=== PATIENT | male | born 1980 | race Caucasian/White ===

== ENCOUNTER 2019-04-19 12:43 | Emergency (ER) | payer SELFPAY ==
[2019-04-19 12:44] VITALS: BP 152/86; PULSE 93; RESP 16; TEMP 36.5; O2SAT 96; BMI 33.7
--- NOTE | 2019-04-19 12:55 | RAD_ITS ---
STUDY: X-RAY - LEFT ELBOW REASON FOR EXAM: Male, 38 years old. Injury TECHNIQUE: 3 view(s) of the elbow. COMPARISON: None. FINDINGS: Intact visualized humerus, radius and ulna. Normal radiocapitellar and ulnotrochlear articulations. The soft tissue structures are unremarkable. No evidence of elbow joint effusion. There is triceps enthesopathy, along with chronic lateral epicondylitis RAD/Elbow min 3 Views IMPRESSION: No acute displaced fracture, or traumatic subluxation based on current assessment. There is triceps enthesopathy, along with chronic lateral epicondylitis Electronically Signed: Donis Nieto MD at 13:23 EDT Tel [phone], Service support ,
--- NOTE | 2019-04-19 12:55 | RAD_ITS ---
STUDY: X-RAY - LEFT RADIUS AND ULNA REASON FOR EXAM: Male, 38 years old. Injury TECHNIQUE: 2 view(s) of the forearm. COMPARISON: None. FINDINGS: There is no demonstrated soft tissue swelling or radiopaque foreign body. Intact visualized radius. Intact visualized ulna. Enthesopathy along the triceps insertion. There is no demonstrated acute fracture. No evidence of joint effusion in the elbow joint. RAD/Forearm 2 Views IMPRESSION: No acute displaced fracture, or traumatic subluxation based on current assessment. There is triceps enthesopathy. Electronically Signed: Donis Nieto MD at 13:19 EDT Tel [phone], Service support ,
--- NOTE | 2019-04-19 13:49 | ED.VISSUMM ---
- ER Visit Summary Date of Service: 04/19/19 Chief Complaint: Left elbow injury History of Present Illness: The patient is a 38 M who presents with a left elbow injury that occurred today after a fall. Patient states he slid down an embankment approximately 5 feet. Patient states he put his left arm out to catch him and he felt a snapping sensation in his elbow. Patient denies any other injuries. Patient denies any head injury or loss of consciousness. Patient states he did have some tingling in his fingers that resolved after a few seconds. Patient describes his pain as aching, burning, and throbbing. Patient states the pain is worse with movement. Physical Examination: Vital signs are stable. Patient is afebrile. Patient is in no acute distress. Musculoskeletal exam reveals tenderness over the left elbow. There is no bony crepitance or step-off. Range of motion was limited in all motions of the elbow secondary to pain. There is no deformity noted. Radial pulses are equal bilaterally. Sensation was intact to light touch in the radial, median, and ulnar areas. Capillary refill is less than 2 seconds in all digits. Strength is 5/5 in the radial, median, and ulnar areas. Test Results: X-rays of the left elbow and left forearm were obtained. There is no acute fracture. These were interpreted by the radiologist and myself. Emergency Department Course and Treatment: Patient was instructed to ice and elevate the left elbow. Patient was given work restrictions. Patient was instructed to take Tylenol or ibuprofen as needed for pain. Patient was instructed to follow-up with his primary care physician in 5 to 7 days. Patient understood and was agreeable with the plan. All questions were answered. Disposition: Discharge home Impression: Left elbow contusion This note was generated with [employer] dictation software. It may contain incorrect words, spelling, and punctuation that were not noted in review of the chart prior to signing ED Disposition - Plan for ED Patient: Disposition: Home or Assisted Living Diagnosis: Left elbow contusion Instructions: CONTUSION, Elbow Referrals: Care Physician,No Primary [Primary Care Provider] - Ke Mason MD [NON-STAFF] - 5-7 Days [facility] [GROUP OF PHYSICIANS] - 5-7 Days
--- NOTE | 2019-04-19 14:03 | ED.RN ---
PT ADAMANTLY DECLINES FILING INJURY WORKERS COMP CLAIM. PT VOICES UNDERSTANDING THAT HE MAY HAVE DIFFICULTY HAVING VISIT WORKERS COMP LATER IF HE CHANGES MIND.
[2019-04-19 14:04] VITALS: BP 128/82; PULSE 84; RESP 18; O2SAT 99
== END 2019-04-19 14:05 | disposition home or self-care (01) ==
PROVIDERS: Emergency Provider Emergency Medicine
DX: S50.02XA Contusion of left elbow, initial encounter (principal); W01.0XXA Fall on same level from slipping, tripping and stumbling without subsequent striking against object, initial encounter; Y93.9 Activity, unspecified; Y92.828 Other wilderness area as the place of occurrence of the external cause; Y99.9 Unspecified external cause status
CPT/HCPCS: 73080; 73090; 99283

== ENCOUNTER 2019-08-10 07:42 | Emergency (ER) | payer SELFPAY ==
[2019-08-10 07:43] VITALS: BP 160/93; PULSE 75; RESP 20; TEMP 37; O2SAT 99; BMI 33.0
[2019-08-10 08:00] VITALS: BP 160/93; PULSE 75; RESP 20; TEMP 37; O2SAT 99
[2019-08-10 08:02] VITALS: O2SAT 97
--- NOTE | 2019-08-10 08:10 | RAD_ITS ---
STUDY: X-RAY CHEST REASON FOR EXAM: Male, 39 years old. Cough. TECHNIQUE: PA and lateral views of the chest. COMPARISON: Comparison is made with prior examination dated October 15, 2015. FINDINGS: The lungs are clear and expanded. There is no demonstrated pleural abnormality. Normal size heart. Normal mediastinum and faustino. Normal visualized pulmonary arteries. Normal visualized aortic arch and descending thoracic aorta. Normal visualized thoracic spine. Normal visualized ribs, clavicles, and shoulders. There is no demonstrated abnormality of the visualized soft tissue structures of the upper abdomen. RAD/Chest PA and Lateral IMPRESSION: Normal x-ray examination of the chest. Electronically Signed: Andres Rao, at 11:13 EST , Service support ,
--- NOTE | 2019-08-10 08:31 | ED.VISSUMM ---
- ER Visit Summary Date of Service: 08/10/19 Chief Complaint: Fever, sore throat and cough. History of Present Illness: The patient is a 39 M no significant past medical history. Patient states that since Thursday he has had a high fever as high as 104, sweats and cough at times with green sputum. Severe sore throat. And body aches. He did not get a flu shot. Denies any nausea, vomiting, diarrhea or dysuria. No abdominal pain. Physical Examination: Middle-aged male no acute distress vital signs stable afebrile. Pulse is 9 9% on room air no signs of hypoxia. He does not look septic or toxic. He does not look dehydrated. H EENT exam unremarkable except earwax in his right ear. Neck nontender no lymphadenopathy. Lungs clear to auscultation bilaterally. Dry cough. Heart regular rhythm no murmur. Abdomen soft and nontender. Remedies moves all 4. Calves nontender without edema or cords. Skin no rashes. Back nontender. Neurologic exam is unremarkable. Test Results: Chest x-ray AP lateral views read by myself shows normal cardiac silhouette mediastinum. No pneumonia. Emergency Department Course and Treatment: Patient has history and exam consistent with influenza. He does not have pneumonia by x-ray or exam. He will be treated conservatively. He and I discussed Tamiflu and we are not planning go that route at this time. Treatment Plan: Tylenol and Motrin for fever. Plenty of fluids and rest. Off work. Follow-up as needed. Disposition: Discharge Impression: Acute influenza This note was generated with [facility] dictation software. It may contain incorrect words, spelling, and punctuation that were not noted in review of the chart prior to signing ED Disposition - Plan for ED Patient: Referrals: Care Physician,No Primary [Primary Care Provider] -
--- NOTE | 2019-08-10 08:34 | ED.DEP ---
ED Disposition - Plan for ED Patient: Disposition: Home or Assisted Living Instructions: Influenza Referrals: Darnell Álvarez MD [STAFF PHYSICIAN] - As Needed Additional Instructions: Plenty of fluids and rest. Alternate Tylenol and Motrin for fever and body aches. Off work next 2 days. Follow-up with your doctor as needed.
== END 2019-08-10 08:42 | disposition home or self-care (01) ==
PROVIDERS: Emergency Provider Emergency Medicine
DX: J11.1 Influenza due to unidentified influenza virus with other respiratory manifestations (principal)
CPT/HCPCS: 71046; 99282; A4216

== ENCOUNTER 2020-04-11 10:49 | Emergency (ER) | payer OTHER, SELFPAY ==
[2020-04-11 10:50] VITALS: BP 134/77; PULSE 98; RESP 17; TEMP 36.6; O2SAT 97; BMI 31.3
[2020-04-11 11:07] VITALS: BP 138/83; PULSE 89; RESP 14; O2SAT 97
--- NOTE | 2020-04-11 11:15 | EKG12_ITS ---
Test Reason : STERNAL PAIN Blood Pressure : / mmHG Vent. Rate : 098 BPM Atrial Rate : 098 BPM P-R Int : 166 ms QRS Dur : 096 ms QT Int : 338 ms P-R-T Axes : 043 038 052 degrees QTc Int : 431 ms Normal sinus rhythm Normal ECG Confirmed by AMPARO VAUGHN ([id number]), graphic editor JORDANA ZAPIEN ([id number]) on 04/16/2020 2:20:02 PM Referred By: MORAIMA Confirmed By:AMPARO VAUGHN
--- NOTE | 2020-04-11 11:16 | CT_ITS ---
STUDY: CTA OF THE ABDOMINAL AORTA REASON FOR EXAM: Male, 39 years old. LOW BACK PAIN AND ABDOMEN PAIN RADIATION DOSAGE (If Supplied By Facility): CTDIvol = ( 13.59 ) mGy, DLP = ( 1111.47 ) mGycm TECHNIQUE: Axial CT angiography multi-detector data acquisition was obtained from the thoracic inlet to the symphysis pubis following intravenous administration of Isovue 370 100ml. Axial images and MIP images were reconstructed from the axial data set. Post-processing of the angiographic images was performed, with multiplanar reformation and 3D reconstruction. Individualized dose optimization techniques were used for this CT. TECHNICAL QUALITY: Good COMPARISON: None. Descriptors of Narrowing: None (0%) Mild (< 50%) Moderate (50-70%) Severe (70-90%) Subtotal/Total Occlusion (90-100%) Non-Evaluable (technically non-diagnostic FINDINGS: Abdominal aorta: No demonstrated narrowing. Celiac and superior mesenteric arteries: No demonstrated narrowing. Inferior mesenteric artery: No demonstrated narrowing. Right renal artery(arteries): No demonstrated narrowing. Left renal artery(arteries): No demonstrated narrowing. Right common iliac artery: No demonstrated narrowing. Right external iliac artery: No demonstrated narrowing. Right internal iliac artery: No demonstrated narrowing. Left common iliac artery: No demonstrated narrowing. Left external iliac artery: No demonstrated narrowing. Left internal iliac artery: No demonstrated narrowing. Scattered sigmoid diverticula. Small umbilical hernia containing fat. CT/CTA Abdomen W/WO Contrast IMPRESSION: Normal abdominal aorta and thoracic aorta. Electronically Signed: Anrdes Rao, at 12:33 EDT , Service support ,
--- NOTE | 2020-04-11 11:17 | CT_ITS ---
STUDY: CTA CHEST REASON FOR EXAM: Male, 39 years old. LOW BACK PAIN and abdomen pain RADIATION DOSAGE (If Supplied By Facility): CTDIvol = ( 13.59 ) mGy, DLP = ( 1111.47 ) mGycm TECHNIQUE: The examination was performed with the intravenous administration of Isovue 370 100ml. Post-processing of the angiographic images was performed, with multiplanar reformation and 3D reconstruction. Individualized dose optimization techniques were used for this CT. COMPARISON: Comparison is made with prior study dated 04/13/2011. FINDINGS: Normal enhancement of the main pulmonary artery and right and left pulmonary arteries. Normal enhancement of the bilateral peripheral pulmonary arteries. There is no demonstrated pulmonary embolism. Normal thoracic aorta and visualized great vessels. There is no demonstrated aortic dissection. Normal heart and pericardium. Normal mediastinum. Normal hilar regions. Normal visualized trachea and bronchi. The lungs are well expanded. Normal pulmonary parenchyma. Normal pleura. Normal chest wall structures. Normal osseous structures. Normal visualized upper abdomen. CT/CTA Chest W/WO Contrast IMPRESSION: Normal CTA chest examination, without a demonstrated pulmonary embolism or arterial dissection. Electronically Signed: Andres Rao, at 12:41 EDT , Service support ,
--- NOTE | 2020-04-11 11:18 | ED.VIS.GEN ---
History of Present Illness Chief Complaint: Back Informant: Patient Narrative: 39-year-old male with history of hypertension presenting with complaints of back pain. He states his back pain started on Thursday. He thought he pinched a nerve. He states that now he has pain in his stomach on the bilateral flanks as well as in the epigastrium. He states that at times this radiates up into the left side the upper/lower his diet of his chest. He states that his pain does seem to come and go. It does not correlate with meals. He has been able to eat and drink normally although he states he wants to say he is mildly nauseous. He has not had any constipation or diarrhea. He states his urine is normal. He denies fever, chills. He denies any injury. He states he only drinks occasionally. He is a non-smoker. No history of DVT/PE. Past Medical History - Allergies and Home Meds Allergies/Adverse Reactions: Allergies No Known Allergies Allergy (Verified 04/11/20 10:49) Primary Care Physician: Care Physician,No Primary [Primary Care Provider] - Prior records reviewed: Yes Past Medical History: - - Hypertension Lives: Spouse/ Significant Other Smoking Status: Unknown if ever smoked Alcohol: Occasional Drugs: None Review of Systems General: Denies: Chills, Fever, Sweats Eyes: Denies: Visual changes - bilaterally, Diplopia ENT: Denies: Rhinorrhea, Sore throat Cardiovascular: Reports: Chest pain Respiratory: Denies: Dyspnea, Cough, Dyspnea on exertion Gastrointestinal: Reports: Abdominal pain, Nausea. Denies: Vomiting, Diarrhea, Constipation, Melena, Hematochezia Genitourinary: Denies: Dysuria, Hematuria Musculoskeletal: Reports: Back pain. Denies: Extremity Pain Skin: Denies: Rash, Abscess Neurological: Denies: Headache Physical Exam Vital Signs/Narrative: Vital Signs Temp Pulse Resp BP Pulse Ox 04/11/20 11:07 89 14 138/83 H 97 04/11/20 10:50 97.9 F 98 17 134/77 H 97 Inital Vital Signs reviewed: Yes General: Well nourished, No Acute Distress Head: Normocephalic, Atraumatic Eyes: Perrl, EOMI. Negative for: Scleral icterus ENT: Moist mucous membranes, No rhinorrhea Cardiovascular: Regular rate, Regular rhythm Respiratory: No distress, CTA bilaterally, Chest nontender Abdomen: Soft, Tender - Mild tenderness to palpation focally in the epigastrium and in the bilateral flanks. Non-peritoneal. Back: - - Tenderness to palpation generally over the lower back bilaterally. There is no rash. No evidence of trauma. Extremities: Nontender, No edema Skin: Normal color Neurological: Alert, Oriented x3 Psychological: Normal affect, Normal Mood Diagnostic/Tx/Re-eval Clinical Impression(s) from Imaging Studies Abdomen CTA 04/11/20 11:16 IMPRESSION: Normal abdominal aorta and thoracic aorta. Electronically Signed: Andres Jalen, at 12:33 EDT , Service support , Chest CTA 04/11/20 11:17 IMPRESSION: Normal CTA chest examination, without a demonstrated pulmonary embolism or arterial dissection. Electronically Signed: Andres Jalen, at 12:41 EDT , Service support , Laboratory Data 04/11/20 04/11/20 04/11/20 11:23 11:23 12:15 WBC 6.4 RBC 4.90 Hgb 15.5 Hct 45.2 MCV 92.2 MCH 31.6 MCHC 34.3 RDW Std Deviation 40.4 RDW Coeff of Cornelius 11.9 Plt Count 249 MPV 9.8 Immature Gran % (Auto) 0.800 Neut % (Auto) 70.2 H Lymph % (Auto) 20.9 [place] % (Auto) 6.1 Eos % (Auto) 1.4 Baso % (Auto) 0.6 Absolute Neuts (auto) 4.5 Absolute Lymphs (auto) 1.33 Nucleated RBC % 0 Sodium 138 Potassium 4.0 Chloride 104 Carbon Dioxide 28.0 Anion Gap 6 BUN 14 Creatinine 1.20 Estim Creat Clear Calc 81.83 Est GFR (MDRD) Af Amer 86 Est GFR (MDRD) Non-Af 71 BUN/Creatinine Ratio 11.7 Glucose 122 H Calcium 8.8 Total Bilirubin 0.70 AST 18 ALT 44 Alkaline Phosphatase 68 Troponin I < 0.015 Total Protein 7.8 Albumin 4.2 Globulin 3.6 Albumin/Globulin Ratio 1.2 Lipase 82 Urine Color Yellow Urine Clarity Sl. Cloudy Urine pH 6.5 Ur Specific [place] 1.010 Urine Protein Negative Urine Glucose (UA) Normal Urine Ketones Negative Urine Occult Blood Negative Urine Nitrite Negative Urine Bilirubin Negative Urine Urobilinogen Normal Ur Leukocyte Esterase Negative Urine RBC 0 SEEN Urine WBC 0 SEEN Ur Squamous Epith Cells 0 SEEN Urine Bacteria 0 SEEN Urine Mucus 0 SEEN - Rhythm Strip Rhythm Strip: Sinus Rhythm Rate: 98 - EKG Initial EKG Interpretation: Sinus Rhythm, No Acute Injury Pattern Prior: Unchanged - Medical Decision Making Patient presents with multiple complaints including back pain, abdominal pain, chest pain. He states that this is been happening since Thursday. He states he felt like he may have pinched nerve or something given pain distribution. Denies any trauma. He has no paresthesias. On examination he has very mild tenderness of his abdomen. He has also has tenderness of his back generally as well. Lab work-up is unremarkable. The patient's diffuse pain of his back, chest, abdomen he did have CTA of the chest abdomen pelvis which is negative. I do not believe the source of this patient's pain is cardiac in nature. He was offered medication for musculoskeletal pain but he declines this. I think the patient is stable to be discharged home. He is given return precautions. Impression: 1. Atypical chest pain 2. Abdominal pain 3. Back pain ED Disposition - Plan for ED Patient: Disposition: Home or Assisted Living Instructions: ED Back Pain Acute or Chronic, ED Epigastric Pain [facility], ED Chest Pain [facility] Referrals: Care Physician,No Primary [Primary Care Provider] -
[2020-04-11] MEDS: 0.9% Normal Saline 1,000 ML 1000 ML IV (11:25)
[2020-04-11 11:31] LABS: Absolute Lymphocyte Count 1.33 X10^3/uL (0.83-4.51); Absolute Neutrophil Count 4.5 X10^3/uL (2.0-7.7); Basophil# 0.04 X10^3/uL; Basophil% 0.6 % (0-1); Eosinophil# 0.09 X10^3/uL; Eosinophils% 1.4 % (0-5); Hematocrit 45.2 % (40-54); Hemoglobin 15.5 g/dL (13.0-16.5); Lymphocyte # 1.33 X10^3/ul (4.0); Lymphocyte % 20.9 % (19-41); Mean Corp Hgb Conc 34.3 g/dL (32-36); Mean Corpuscular Hgb 31.6 pg (27.0-32.0); Mean Corpuscular Volume 92.2 fL (80-94); Mean Platelet Vol. 9.8 fl (6.2-12.0); Monocyte# 0.39 X10^3/uL; Monocyte% 6.1 % (0-10); NRBC Flagged by Analyzer 0 % (0-5); Neutrophil # 4.45 X10^3/uL (2.7-7.7); Neutrophil % 70.2 % (47-70); Platelet Count 249 K/mm3 (150-450); RBC Distribution Width CV 11.9 % (11.6-14.6); RBC Distribution Width SD 40.4 fl (35.1-43.9); White Blood Count 6.4 K/mm3 (4.4-11.0)
[2020-04-11 11:53] LABS: ALB/GLOB Ratio 1.2 RATIO (0.9-2.4); AST(SGOT) 18 U/L (15-37); Alanine Aminotransfer ALT/SGPT 44 U/L (16-61); Albumin, Serum 4.2 g/dL (3.2-5.0); Alkaline Phosphatase 68 U/L (45-117); Anion Gap 6 (5-15); BUN 14 mg/dL (7-18); BUN/Creat Ratio 11.7 RATIO (10-20); Calcium,Total 8.8 mg/dL (8.5-10.1); Chloride 104 mmol/L (98-107); EST Glomerular Filtration Rate 71 mL/min (>60); Est Glom Filt Rate - Afr Amer 86 mL/min (>60); Estimated Creatinine Clearance 81.83 ml/min; Globulin 3.6 g/dL (2.2-4.2); Glucose 122 mg/dL (74-106); Lipase 82 U/L (73-393); Protein, Total 7.8 g/dL (6.4-8.2); Sodium Level 138 mmol/L (136-145)
[2020-04-11 12:26] LABS: Bacteria 0 SEEN /hpf (None Seen); Mucous, Urine 0 SEEN /hpf (<or=2+); Red Blood Cells-Urine 0 SEEN /hpf (0-5); Squamous Epithelial Cells - UA 0 SEEN /hpf (0-5); White Blood Cells 0 SEEN /hpf (0-5)
[2020-04-11 12:29] LABS: Color, Urine Yellow (Yellow); Glucose, Dipstick Normal (Normal); Ketone-Dipstick Negative (Negative); Leukocyte Esterase-Dipstick Negative /ul (Negative); Nitrite-Dipstick Negative (Negative); Occult Blood-Urine Negative /ul (Negative); Protein-Dipstick Negative (Negative); Urine Bilirubin Dipstick Negative (Negative); Urine Clarity Sl. Cloudy (Clear); Urine Urobilinogen Normal (Normal); Urine pH 6.5 (5.0 - 8.0)
[2020-04-11 13:48] VITALS: PULSE 84
[2020-04-11 13:49] VITALS: PULSE 84; RESP 16
== END 2020-04-11 13:49 | disposition home or self-care (01) ==
PROVIDERS: Emergency Provider Student in an Organized Health Care Education/Training Program
DX: R07.89 Other chest pain (principal); R10.9 Unspecified abdominal pain; M54.9 Dorsalgia, unspecified; I10 Essential (primary) hypertension
CPT/HCPCS: 71275; 74175; 80053; 81001; 83690; 84484; 85025; 93005; 96360; 99283; J7030; Q9967; A4216

== ENCOUNTER 2022-03-07 00:02 | Emergency (ER) | payer SELFPAY ==
[2022-03-07 00:03] VITALS: BP 161/97; PULSE 97; RESP 20; TEMP 36.1; O2SAT 99; BMI 30.1
--- NOTE | 2022-03-07 00:06 | RAD_ITS ---
EXAM: XR CHEST, 1 VIEW CLINICAL INDICATION: chest pain TECHNIQUE: Frontal view of the chest. This report was created using [employer] report generation technology. COMPARISON: August 10, 2019. FINDINGS: LUNGS AND PLEURAL SPACES: Unremarkable. No consolidation or edema. No pneumothorax. No effusion. HEART: Unremarkable. Cardiac silhouette not enlarged. MEDIASTINUM: Central airways and mediastinal contour are unremarkable. BONES/JOINTS: Shortening and narrowed distal clavicle again noted. SOFT TISSUES: Unremarkable. RAD/Chest 1 View (Portable) IMPRESSION: No acute findings in the chest. Electronically Signed: Liz Quevedo MD at 0:56 EDT ,
--- NOTE | 2022-03-07 00:06 | EKG12_ITS ---
Test Reason : CP Blood Pressure : / mmHG Vent. Rate : 099 BPM Atrial Rate : 099 BPM P-R Int : 160 ms QRS Dur : 084 ms QT Int : 316 ms P-R-T Axes : 055 049 019 degrees QTc Int : 405 ms Normal sinus rhythm Normal ECG Confirmed by TANYA LANDRUM, FRANCISCO ([id number]), deputy editor in chief ERNESTO HOOD ([id number]) on 03/08/2022 9:21:48 AM Referred By: BB Confirmed By:FRANCISCO MARTÍNEZ MD
[2022-03-07 00:50] VITALS: O2SAT 98
[2022-03-07 00:56] LABS: Absolute Lymphocyte Count 2.17 X10^3/uL (0.83-4.51); Absolute Neutrophil Count 5.9 X10^3/uL (2.0-7.7); Basophil# 0.04 X10^3/uL; Basophil% 0.4 % (0-1); Eosinophil# 0.11 X10^3/uL; Eosinophils% 1.2 % (0-5); Hematocrit 45.7 % (40-54); Hemoglobin 15.8 g/dL (13.0-16.5); Lymphocyte # 2.17 X10^3/ul (0.83-4.51); Lymphocyte % 23.8 % (19-41); Mean Corp Hgb Conc 34.6 g/dL (32-36); Mean Corpuscular Hgb 31.8 pg (27.0-32.0); Mean Platelet Vol. 9.3 fl (6.2-12.0); Monocyte# 0.81 X10^3/uL; Monocyte% 8.9 % (0-10); NRBC Flagged by Analyzer 0 % (0-5); Neutrophil # 5.92 X10^3/uL (2.7-7.7); Neutrophil % 64.8 % (47-70); Platelet Count 248 K/mm3 (150-450); RBC Distribution Width CV 12.2 % (11.6-14.6); RBC Distribution Width SD 40.9 fl (35.1-43.9); Red Blood Count 4.97 M/mm3 (4.6-6.2); White Blood Count 9.1 K/mm3 (4.4-11.0)
--- NOTE | 2022-03-07 01:01 | EDS_ITS ---
HPI History of Present Illness Chief Complaint: Chest Pain Informant: patient Onset/Context/Timing Onset: Days (Several) Activity at onset: gradual and onset Timing: Intermittent Quality: Positive for Aching, Pain and Sharp Location: Left Chest (Lateral to the pec and up into axilla) Current Severity: Mild Maximum Severity: Moderate Worsened By: Movement of Torso; Not Worsened By Exertion, Breathing or Coughing Relieved By: Rest Associated Symptoms: Positive for Dyspnea (Tonight starting about 2 hours ago); Negative for Nausea, Vomiting, Diaphoresis, Cough, Fever, Lightheadedness or Palpitations Narrative Narrative: Patient has been having off-and-on chest discomfort left lateral chest wall into axilla, with no other symptoms. Nonpleuritic, no associated lightheadedness, palpitations, dyspnea until 2 hours ago, he states started getting worse and then a little later he noticed himself getting short of breath as a result, so he presents to the emergency department. Denies any known injury. He denies a history of heart disease. He is not a smoker. No history of collapsed lung. No recent travel out of the area or leg pain or swelling. No history of DVT or PE. Denies any cocaine use. [facility] Medical History (Updated 03/07/22 @ 03:[address] Luis Jackson MD) Asthma HTN (hypertension) Knee pain Home Medications buspirone 7.5 mg tablet ea PO 07/09/20 [History Last Taken Unknown] naproxen 500 mg tablet 500 mg PO BID PRN #14 tabs 03/07/22 [Rx Last Taken Unknown] Allergy/AdvReac Type Severity Reaction Status Date / Time No Known Allergies Allergy Verified 04/05/21 15:41 Surgical History History of knee surgery History of shoulder surgery Social History Smoking Status: Never smoker Smokeless tobacco user: chewing tobacco alcohol intake: current ROS ROS ED Constitutional Constitutional ED: Denies chills or fever(s) Eyes Eyes: Denies change in vision or diplopia ENT ENT ED: Denies rhinorrhea or sore throat Cardiovascular Cardiovascular: Reports chest pain; Denies leg edema, orthopnea or palpitations Respiratory/Chest Respiratory/Chest: Reports dyspnea; Denies cough, dyspnea on exertion or orthopnea Gastrointestinal Gastrointestinal: Denies abdominal pain, diarrhea, nausea or vomiting Genitourinary Genitourinary ED: Denies dysuria or hematuria Musculoskeletal Musculoskeletal: Denies back pain or neck pain Integumentary Denies abscess or rash Neurologic Neurologic: Denies headache(s), paresthesias or weakness Psychiatric Psychiatric: Reports anxiety; Denies suicidal thoughts EXAM Physical Exam Const Vital Signs: 03/07/22 00:03 03/07/22 00:50 03/07/22 00:50 Temperature 96.9 F L Temperature Source Temporal Pulse Rate 97 Respiratory Rate 20 H Respiratory Effort Normal Blood Pressure 161/97 H Blood Pressure Mean 118 Pulse Ox 99 98 Oxygen Delivery Method Room Air Room Air 03/07/22 01:13 Temperature Temperature Source Pulse Rate 84 Respiratory Rate 14 Respiratory Effort Blood Pressure 141/90 H Blood Pressure Mean 107 Pulse Ox 95 Oxygen Delivery Method Room Air Positive well nourished and well developed General Appearance ED: well developed and NAD HEENT Reports moist mucous membranes normocephalic and atraumatic Eyes PERRL and EOMs intact bilaterally Neck full ROM and supple Chest Wall inspection of chest normal Chest Narrative: Left lateral chest wall is tender to palpation diffusely, reproducing the patient's pain, no crepitance, depression, flail, or subcutaneous emphysema. Resp normal respiratory effort and clear to auscultation bilaterally Resp Narrative: Equal breath sounds present bilaterally Cardio regular rate, regular rhythm and no murmurs Rate: Negative for tachycardic GI non-tender and non-distended Auscultation: normoactive bowel sounds Palpation: soft Back/Spine no CVA tenderness General Back: other FROM Extremity normal to inspection and no calf tenderness General Extremety ED: Negative for edema, pulses abnormal or tenderness General Extremity: Negative for edema or pulses abnormal Neuro oriented x3, CN's II-XII intact bilaterally and no sensory deficits noted Sensorium / Orientation: awake and alert Motor Exam: strength 5/5 throughout Skin no rashes or lesions noted and no wounds Heart Score History: Slightly/Non-Suspicious ECG: Normal Age: </= 45 years Risk Factors: 1 or 2 Risk Factors Troponin: </= Normal Limit Score: 1 MDM MDM MDM Narrative Medical decision making narrative: This patient's discomfort is reproducible with palpation furthermore his cardiac work-up is normal. I given Toradol while we are waiting for the work-up to return, he feels better, his heart score is 1 because he has a history of hypertension, and his blood pressure is down to 141/90 on reevaluation. He should follow-up regarding his blood pressure at least have it rechecked at some point but otherwise comfortable prescribing him anti-inflammatories and telling him this is likely musculoskeletal in etiology. He is comfortable with that plan. Discharge stable condition. Lab Data Attestation: I reviewed the patient's lab results. Labs: Laboratory Results - last 24 hr 03/07/22 03/07/22 00:52 00:52 WBC 9.1 RBC 4.97 Hgb 15.8 Hct 45.7 MCV 92.0 MCH 31.8 MCHC 34.6 RDW Std Deviation 40.9 RDW Coeff of Cornelius 12.2 Plt Count 248 MPV 9.3 Immature Gran % (Auto) 0.900 Neut % (Auto) 64.8 Lymph % (Auto) 23.8 [place] % (Auto) 8.9 Eos % (Auto) 1.2 Baso % (Auto) 0.4 Absolute Neuts (auto) 5.9 Absolute Lymphs (auto) 2.17 Nucleated RBC % 0 Sodium 139 Potassium 3.8 Chloride 106 Carbon Dioxide 25.0 Anion Gap 8 BUN 14 Creatinine 1.24 Estim Creat Clear Calc 80.13 Est GFR (MDRD) Af Amer 82 Est GFR (MDRD) Non-Af 68 BUN/Creatinine Ratio 11.3 Glucose 93 Calcium 9.1 Troponin I High Sens 4 Radiography Chest X-Ray - ED: 1 View, Read by ED Physician, No Acute Disease and No Infiltrates Diagnostic Testing: Clinical Impression(s) from Imaging Studies Chest X-Ray 03/07/22 00:06 IMPRESSION: No acute findings in the chest. Electronically Signed: Liz Quevedo MD at 0:56 EDT , Rhythm Strip Rhythm Strip: Sinus Rhythm Rate: 90 Ectopy: None EKG Initial EKG: Attestation: I personally reviewed and interpreted this EKG as follows: Interpretation: Sinus Rhythm and No Acute Injury Pattern Comments: Normal EKG Discharge Plan Triage Chief Complaint: Chest Pain ED Provider: Luis Jackson Dx/Rx/DC Orders Clinical Impression: Left-sided chest wall pain Instructions: ED Chest Pain, Uncertain Cause Prescriptions: New naproxen 500 mg tablet 500 mg PO BID PRN Qty: 14 0RF No Action buspirone 7.5 mg tablet PO Label Comments: TAKE 1 TABLET BY MOUTH TWICE A DAY Primary Care Provider: Care Physician,No Primary Referrals: Care Physician,No Primary [Primary Care Provider] - Doctor,Your [STAFF PHYSICIAN] - 1 Week if not improving Disposition Disposition: Home, Self Care
[2022-03-07] MEDS: Ketorolac 30 MG/ML Syringe IV (01:11)
[2022-03-07 01:13] VITALS: BP 141/90; PULSE 84; RESP 14; O2SAT 95
[2022-03-07 01:50] LABS: Anion Gap 8 (5-15); BUN 14 mg/dL (7-18); BUN/Creat Ratio 11.3 RATIO (10-20); Calcium,Total 9.1 mg/dL (8.5-10.1); Chloride 106 mmol/L (98-107); Creatinine, Serum 1.24 mg/dL (0.70-1.30); EST Glomerular Filtration Rate 68 mL/min (>60); Est Glom Filt Rate - Afr Amer 82 mL/min (>60); Estimated Creatinine Clearance 80.13 ml/min; Glucose 93 mg/dL (74-106); Potassium 3.8 mmol/L (3.5-5.1); Sodium Level 139 mmol/L (136-145); Troponin-I HS 4 pg/mL (3.0-78.0)
[2022-03-07 03:42] VITALS: BP 127/86; PULSE 75; RESP 16; O2SAT 98
== END 2022-03-07 03:47 | disposition home or self-care (01) ==
PROVIDERS: Emergency Provider Emergency Medicine; Visit Provider Emergency Medicine
DX: R07.89 Other chest pain (principal); I10 Essential (primary) hypertension; J45.909 Unspecified asthma, uncomplicated
CPT/HCPCS: 71045; 80048; 84484; 85025; 93005; 99284; A4216

== ENCOUNTER 2022-06-04 11:59 | Emergency (ER) | payer SELFPAY ==
[2022-06-04 11:59] VITALS: BP 149/98; PULSE 85; RESP 16; TEMP 36.5; O2SAT 95; BMI 31.2
--- NOTE | 2022-06-04 12:38 | EX.ED.UPPERE ---
HPI History of Present Illness Chief Complaint: Upper Extremity Injury Detail of Chief Complaint: Injury to left hand Informant: patient Narrative Narrative: Patient presents to the emergency department after sustaining an injury to his left hand. Patient states that he was working on his vehicle and dropped a part weighing about 30 pounds out of his left hand. Patient went to work today and try to use his hand and was having a lot of discomfort and felt like there was something may be moving in the hand. He started having some numbness and tingling in the index and middle finger. Patient is right-hand dominant mostly. [facility] Medical History (Updated 06/04/22 @ 12:[address] Kimberly Lawson DO) Asthma HTN (hypertension) Knee pain Home Medications naproxen 500 mg tablet 500 mg PO BID #14 tabs 06/04/22 [Rx Last Taken Unknown] Allergy/AdvReac Type Severity Reaction Status Date / Time No Known Allergies Allergy Verified 04/05/21 15:41 Surgical History History of knee surgery History of shoulder surgery Social History Smoking Status: Never smoker Smokeless tobacco user: chewing tobacco alcohol intake: current ROS ROS ED Review of Systems ROS Unobtainable: other Constitutional Constitutional ED: Reports lethargy; Denies chills, fever(s), sweats or weight loss Eyes Eyes: Denies blurry vision, change in vision or diplopia ENT ENT ED: Denies rhinorrhea or sore throat Cardiovascular Cardiovascular: Denies chest pain, orthopnea or racing heartbeat Respiratory/Chest Respiratory/Chest: Denies cough, dyspnea, dyspnea on exertion, orthopnea or sputum Gastrointestinal Gastrointestinal: Denies abdominal pain, diarrhea, nausea or vomiting Genitourinary Genitourinary ED: Denies dysuria, hematuria or urinary frequency Musculoskeletal Musculoskeletal: Reports other Details: Left hand injury ; Denies arthralgias, back pain, myalgias or neck pain Integumentary Denies abscess, Abrasions or rash Neurologic Neurologic: Denies headache(s) or weakness Psychiatric Psychiatric: Denies anxiety, depression or suicidal thoughts Endocrine Endocrinology: Denies polydipsia, polyphagia or polyuria Hematologic/Lymphatic Hematologic/Lymphatic: Denies easy bleeding, easy bruising or lymphadenopathy Allergic/Immunologic Allergic/Immunologic ED: Denies mouth swelling, tongue swelling or urticaria EXAM Physical Exam Const Vital Signs: 06/04/22 11:59 Temperature 97.7 F L Temperature Source Temporal Pulse Rate 85 Respiratory Rate 16 Blood Pressure 149/98 H Blood Pressure Mean 115 Pulse Ox 95 Oxygen Delivery Method Room Air Positive well nourished and well developed General Appearance ED: well developed and NAD HEENT Reports TM's clear and moist mucous membranes normocephalic and atraumatic; Negative for trauma or tenderness Tympanic Membrane ED: Yes TM's clear Eyes PERRL and EOMs intact bilaterally General Eye ED: Negative for pale conjunctiva or scleral icterus Neck no lymphadenopathy, supple and no JVD General: Negative for tenderness Chest Wall inspection of chest normal and palpation of chest normal Chest: Negative for tenderness Resp normal respiratory effort and clear to auscultation bilaterally Effort and Inspection: Negative for respiratory distress or pain with movement Auscultation: Negative for rhonchi, wheezes or diminished lung sounds Cardio regular rate, regular rhythm, S1 normal heart sound, S2 normal heart sound and no murmurs Peripheral Pulses: pulses 2+ throughout GI normal to inspection, nondistended, normoactive bowel sounds, soft to palpation, non-tender, non-distended and no masses Back/Spine no CVA tenderness and no thoracic nor lumbar tenderness Extremity Extremity Narrative: Left hand-patient has tenderness palpation over the dorsum of the base of the second and third metacarpals. There is some soft tissue swelling noted. There is no broken skin. Neurovascularly intact distally with good range of motion flexion extension of all digits. General Extremety ED: Negative for edema General Extremity: Negative for edema Neuro oriented x3, CN's II-XII intact bilaterally, no sensory deficits noted and gait normal Sensorium / Orientation: awake, alert, oriented to person, oriented to place and oriented to time Motor Exam: strength 5/5 throughout and strength abnormal Psych mental status grossly normal Skin no rashes or lesions noted and no wounds MDM MDM MDM Narrative Medical decision making narrative: Patient will be given a Ant wrap and will be offered work restrictions using his left hand. 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 Patient to use ibuprofen or Tylenol for discomfort. Radiography Diagnostic Testing: Three-view x-rays of the left hand obtained interpreted by myself as no acute fractures or dislocations. Radiology in agreement. Discharge Plan Triage Chief Complaint: Upper Extremity Injury ED Provider: Kimberly Lawson Dx/Rx/DC Orders Clinical Impression: Contusion of hand, left Instructions: ED Hand Contusion Prescriptions: New naproxen 500 MG tablet 500 mg PO BID Qty: 14 0RF Primary Care Provider: Care Physician,No Primary Referrals: Darnell Álvarez MD [Med Staff - Manager Professional Development] - 5-7 Days Care Physician,No Primary [Primary Care Provider] - Disposition Disposition: Home, Self Care
--- NOTE | 2022-06-04 13:25 | RAD_ITS ---
STUDY: X-RAY - LEFT HAND REASON FOR EXAM: Male, 41 years old. Swelling, pain, -- trauma from car equipment TECHNIQUE: 3 view(s) of the hand. COMPARISON: Comparison is made with prior study dated 10/14/2021. FINDINGS: Normal radiocarpal articulation. Normal distal radioulnar joint. Normal visualized carpal bones. Normal carpal articulations Normal carpometacarpal articulation of the thumb. Normal second through fifth carpometacarpal joints. Normal metacarpi. Normal metacarpophalangeal joint of the thumb. Normal interphalangeal joint of the thumb. Normal proximal and distal phalanges of the thumb. Normal metacarpophalangeal joints of the second through fifth fingers. Normal proximal and distal interphalangeal joints of the second through fifth fingers. Normal phalanges of the second through fifth fingers. Soft tissue swelling. RAD/Hand Min 3 Views IMPRESSION: Soft tissue swelling. Electronically Signed: Andres Rao MD at 13:02 EDT ,
== END 2022-06-04 13:27 | disposition home or self-care (01) ==
PROVIDERS: Emergency Provider Emergency Medicine; Visit Provider Emergency Medicine
DX: S60.222A Contusion of left hand, initial encounter (principal); I10 Essential (primary) hypertension; F17.220 Nicotine dependence, chewing tobacco, uncomplicated; W20.8XXA Other cause of strike by thrown, projected or falling object, initial encounter
CPT/HCPCS: 73130; 99282